=== PATIENT | female | born 1985 | race African-American/Black ===

== ENCOUNTER 2018-05-19 11:32 | Day surgery (SDC) | payer OTHER ==
[2018-05-19 13:14] VITALS: BMI 30.5
--- NOTE | 2018-05-19 13:37 | PDOC.LDHP ---
Labor and Delivery H&P HPI: Patient in Triage: Bed A Reason for eval: possible ut contractions PLEASE SEE FULL H&P in CHART In brief, patient at 27.6 weeks with no HX PTB () here for contractions/ cramps. 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 [employer] No CS HX ( x2) ROS: otherwise negative Full H&P in chart Assessment: Threatened PTL at 27 weeks 6 days...clinically comfortable and do not suspect PTL Plan: CX legth in progress FFN pending If both negatve...OK to release (no recent sex for FFN collection) If FFN positive, will check cervix digitally Grav: 5 Para: 2 OB History Details: SAB2 Abnormal US findings: No Current medications: pre- vitamins Previous surgical history: none Allergies/Adverse Reactions: Allergies Allergy/AdvReac Type Severity Reaction Status Date / Time No Known Allergies Allergy Verified 05/19/18 12:09 Social history: none - Physical Exam Vital signs reviewed and normal: yes General: NAD - Assessment Threatened PTL - Plan Plan: other (See handwritten. See FFN...and cx length results)
[2018-05-19 13:41] LABS: FFN Internal QC Analyzer PASS (PASS); FFN Internal QC Cassette PASS (PASS); Fetal Fibronectin Negative (Negative)
--- NOTE | 2018-05-19 14:09 | ULT ---
LIMITED OB ULTRASOUND FOR EVALUATION OF CERVICAL LENGTH: Date: 05-19-18 History: Positive , pre-term contractions. Evaluate cervical length. FINDINGS: There is evidence of a single intrauterine gestation in cephalic presentation. Cardiac doppler does d emonstrate heart tones with a heart rate of 135 beats/minute. There is shadowing in the region of the cervix, but the cervical length measures approximately 3 cm b ased on transabdominal imaging. No additional imaging was obtained of the fetus. IMPRESSION: 1. Single intrauterine gestation in cephalic presentation with heart tones documented. 2. Cervical length measures approximately 3 cm. POS: [facility]
--- NOTE | 2018-05-19 14:30 | PDOC.EVN ---
Event Note - Event Note Event Note: FFN negative, Off work tonight and may return to work tomorrow PM. FHTs reactive. BPs ok
--- NOTE | 2018-05-19 14:57 | PDOC.EVN ---
Event Note - Event Note Event Note: Note: FHTS have moderate variability...less than 28 weeks so technically under the EGA for "reactive" but still a reassurring pattern.
== END 2018-05-19 14:57 | disposition home or self-care (01) ==
LOC: L&D/OP 11:32
PROVIDERS: ATTEND Obstetrics & Gynecology
DX: O47.02 False labor before 37 completed weeks of gestation, second trimester (principal); Z3A.27 27 weeks gestation of pregnancy
CPT/HCPCS: 59025; 76815; 82731; 99282

== ENCOUNTER 2018-07-28 00:19 | Day surgery (SDC) | payer OTHER ==
[2018-07-28 00:52] VITALS: BMI 38.0
--- NOTE | 2018-07-28 04:10 | PRG ---
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 CHIEF COMPLAINT: Abdominal pains. HISTORY OF PRESENT ILLNESS: The patient is a 33-year-old female with an intrauterine at 37 weeks and 6 days who presents to labor and delivery from work with uterine contractions that s he feels are about every 6-8 minutes apart. She denies any leakage of fluid or vaginal bleeding. Sh e denies fever, fall, headache, chest pain, or shortness of breath. She denies nausea, vomiting. Sh e reports diarrhea. Denies constipation. Denies any new rashes, hip problems, knee problems, muscle weakness. Denies vaginal bleeding or leakage of fluid. Denies urinary urgency. Reports her contra ctions began several hours ago. PAST MEDICAL HISTORY: Negative. PAST SURGICAL HISTORY: Negative. ALLERGIES: No known drug allergies. SOCIAL HISTORY: Denies drug, alcohol, or tobacco use. The patient has had 2 term vaginal deliveries , uncomplicated. OBSTETRIC LABORATORY DATA: Blood type is O positive. Patient had a diabetic screen of 144 with a no rmal 3-hour GTT. RPR is nonreactive, blood type O positive, antibody screen is negative. Hepatitis B surface antigen nonreactive, HIV is nonreactive. She is rubella immune. GC and chlamydia are nega tive. REVIEW OF SYSTEMS: Per HPI. PHYSICAL EXAMINATION: VITAL SIGNS: Blood pressure 108/70, heart rate of 89, respiratory rate 18, satting 98% on room air, temperature 98.7. GENERAL: She appears to be in no acute distress. She is alert and oriented, cooperative and pleasan t to interact with. HEENT: Head: Normocephalic, atraumatic. LUNGS: Clear to auscultation bilaterally. HEART: Regular rate and rhythm. ABDOMEN: Soft, gravid, nontender. EXTREMITIES: Nontender, nonedematous. Her cervical exam is 4, 70, -2 station, which is consistent with her last check at the [facility] er in the day; after 2 hours, is unchanged. Her contraction pattern is about every 6-8 minutes. Fet us has NST, it was noted to have a baseline in the 140s with moderate long-term variability, positive 15 x 15 accelerations, no decelerations. ASSESSMENT AND PLAN: The patient is a 33-year-old female with an intrauterine at 37 weeks and 6 days who is having late in labor. The patient has denied any pain medication at this jam e. She is being discharged to home for rest and given term labor precautions. The patient lives her e in [facility]. Her appointment with Dr. Tran is next week. She has been encouraged to keep.
== END 2018-07-28 03:25 | disposition home health service (06) ==
LOC: L&D/OP 00:19
PROVIDERS: ATTEND Obstetrics & Gynecology
DX: O47.1 False labor at or after 37 completed weeks of gestation (principal); Z3A.37 37 weeks gestation of pregnancy
CPT/HCPCS: 99282

== ENCOUNTER 2018-08-02 12:53 | Inpatient (IN) | payer OTHER ==
[2018-08-02] MEDS ORDERED: Lidocaine 1% (PF) 30 ML VIAL SC PRN (13:05)
[2018-08-02] MEDS ORDERED: Promethazine HCl 25 MG/ML VIAL IM PRN ×2 (13:05→17:38)
[2018-08-02] MEDS ORDERED: Ibuprofen 800 MG TAB PO PRN (13:05)
[2018-08-02] MEDS ORDERED: Butorphanol Tartrate 1 MG/ML VIAL SLOW IVP PRN (13:05)
[2018-08-02] MEDS ORDERED: Docusate 100 MG CAP PO PRN (13:05)
[2018-08-02] MEDS ORDERED: Ondansetron HCl/PF 4 MG/2 ML Vial IVP PRN ×2 (13:05→17:38)
[2018-08-02] MEDS ORDERED: Meperidine HCl/PF 25 MG/ML VIAL IM/IV PRN (13:05)
[2018-08-02] MEDS ORDERED: Acetaminophen/Codeine 30-300mg Tablet PO PRN ×2 (13:05)
--- NOTE | 2018-08-02 13:14 | PDOC.LDHP ---
Labor and Delivery H&P Chief complaint: scheduled induction (for oligohydramnios) HPI: Pt is a 33yo sent from office with oligohydramnios after pt reported decreased FM over the last week. FHT WNL in office and JING 4cm. Current gestational age (weeks): 38 Due date: 08/14/18 Dating criteria: first trimester ultrasound Grav: 5 Para: 2 OB History Details: svdx2, sab x 2 Current complications: oligohydramnios Abnormal US findings: Yes (JING 4cm, vtx) Past Medical History: none Current medications: pre-millie vitamins Previous surgical history: none Allergies/Adverse Reactions: Allergies Allergy/AdvReac Type Severity Reaction Status Date / Time No Known Allergies Allergy Verified 05/19/18 12:09 Social history: none - Physical Exam Vital signs reviewed and normal: yes General: resting Heart: RRR Lungs: CTAB Abdomen: gravid Extremeties: no edema FHT: category 1 - Vaginal Exam cm dilated: 4 Effacement: 75% Station: -2 - OB Labs RH: positive Antibody Screen: negative HIV: negative RPR: negative HEPSAg: negative 1 hour GCT: positive 3 hour GTT: negative GBS: negative Urine drug screen: not done Rubella: immune - Assessment L&D Assessment: medically indicated induction - Plan Plan: admit to L&D, labor augmentation if indicated, informed consent obtained, anesthesia consult for pain management -: A/P: 33yo @ 38 weeks with oligohydramnios. Admit, AROM and pitocin for IOL planned.
[2018-08-02] MEDS ORDERED: NS w/ Oxytocin 10 units 500 ML IV SCH ×2 (13:15)
[2018-08-02 13:21] VITALS: BMI 38.7
[2018-08-02] MEDS: Lactated Ringer's 1,000 ML IV SCH ×2 (14:10→17:14)
[2018-08-02 14:44] LABS: Hemoglobin 12.1 g/dL (12.0-16.0); Mean Corpuscular HGB CONC 33.3 g/dL (32.0-36.0); Mean Platelet Volume 9.5 fL (7.4-10.4); Platelet Count 205 thou/uL (130-400); RBC Distribution Width 13.3 % (11.5-14.5); Red Blood Cell (RBC) Count 4.03 mill/uL (4.20-5.40); White Blood Cell (WBC) Count 12.3 thou/uL (4.8-10.8)
[2018-08-02] MEDS ORDERED: Bupivacaine 0.5% 20 ML, fentaNYL Citrate/PF 400 MCG in Sodium Chloride 0.9% 72 ML EPIDURAL SCH (15:00)
[2018-08-02] MEDS ORDERED: DISCONTINUE ALL PREVIOUS NARCOTICS FS SCH (15:00)
[2018-08-02 15:24] LABS: Syphilis Antibody Nonreactive (Nonreactive); Syphilis Antibody Index 0.05 S/CO (<1.00 Non-Reactive)
[2018-08-02 15:26] LABS: HBSAg Index 0.22 S/CO (0-0.99); Hep B Surf Ag Non-Reactive S/CO (NonReactive)
[2018-08-02] MEDS ORDERED: Naloxone HCl 0.4 mg/ml Vial IVP PRN ×2 (17:38)
[2018-08-02] MEDS ORDERED: diphenhydrAMINE 50 MG/ML VIAL IVP PRN (17:38)
[2018-08-02] MEDS ORDERED: Eucerin (Mineral Oil/Petrolatum,White) 30 gm Jar TOP PRN (17:38)
[2018-08-02] MEDS ORDERED: Acetaminophen 325 MG TAB PO PRN (17:38)
[2018-08-02] MEDS ORDERED: Lactated Ringer's 500 ML IV PRN (17:38)
[2018-08-02] MEDS ORDERED: ePHEDrine/0.9% NaCl/PF SYRINGE 50 mg/10 ml SLOW IVP PRN (17:38)
[2018-08-02] MEDS ORDERED: fentaNYL Citrate/PF 400 MCG, Bupivacaine 0.5% 20 ML in Sodium Chloride 0.9% 72 ML EPIDURAL SCH (17:45)
[2018-08-02] MEDS ORDERED: Communication Order-Pharmacy FS SCH (17:45)
--- NOTE | 2018-08-02 21:05 | PDOC.OPDEL ---
OB Operative/Delivery Note Delivery Dr/Surgeon: Marc Pre-Delivery Diagnosis: medically indicated induction (oligohydramnios) Procedure/Post Delivery Dx: spontaneous vaginal delivery Weeks gestation: 38 Anesthesia: epidural - Findings A Sex: female Weight: 5 lb 5 oz - 1 min: 9 - 5 min: 9 - Additional Findings/Plan Placenta delivered: spontaneous Repaired Obstetrical Laceration: none Estimated blood loss: 50ml QBL pending Post delivery plan: routine recovery
[2018-08-02] MEDS: NS / Oxytocin 40 units/1000ml 1,000 ML IV PRN ×2 (21:36→21:57)
[2018-08-03] MEDS ORDERED: Acetaminophen/Codeine 30-300mg Tablet PO PRN ×2 (01:02)
[2018-08-03] MEDS ORDERED: Ondansetron HCl/PF 4 MG/2 ML Vial IVP PRN (01:02)
[2018-08-03] MEDS ORDERED: Preparation H Ointment 28 GM TUBE PR PRN (01:02)
[2018-08-03] MEDS ORDERED: Milk Of Magnesia 30 ML UDCUP PO PRN (01:02)
[2018-08-03] MEDS ORDERED: diphenhydrAMINE 25 MG CAP PO PRN (01:02)
[2018-08-03] MEDS ORDERED: Benzocaine/Menthol 20-0.5% 60 ML CAN TOP PRN (01:02)
[2018-08-03] MEDS ORDERED: Bisacodyl 10 MG SUPP PR PRN (01:02)
[2018-08-03] MEDS ORDERED: NS / Oxytocin 40 units/1000ml 1,000 ML IV SCH (01:02)
[2018-08-03] MEDS ORDERED: Lanolin Ointment 7 GM TUBE TOP PRN (01:02)
[2018-08-03] MEDS ORDERED: Docusate Calcium (SURFAK) 240 MG CAP PO SCH (01:15)
[2018-08-03] MEDS: Ibuprofen 800 MG TAB PO SCH ×3 (01:52→22:01)
[2018-08-03] MEDS ORDERED: Bupivacaine/Epinephrine 0.25% 30 ML VIAL ONE (04:35)
[2018-08-03] MEDS ORDERED: Lidocaine 2% MPF 10 ML AMP (For Epidural Use) ONE (04:35)
[2018-08-03] MEDS ORDERED: Adacel (T-DAP) 0.5 ML VIAL IM ONE (09:00)
[2018-08-03] MEDS: Ferrous Sulfate 325 MG TAB PO SCH ×2 (09:29→18:19)
[2018-08-03] MEDS: Prenatal Vitamin 1 TAB PO SCH (09:30)
[2018-08-03] MEDS: Docusate Calcium (SURFAK) 240 MG CAP PO SCH ×2 (09:30→22:01)
--- NOTE | 2018-08-03 12:19 | PDOC.PP ---
Post Progress Note Post Day #: 1 Subjective: doing well, breast feeding, min lochia PO intake tolerated: yes Flatus: yes Ambulation: yes Vital Signs (12 hours) Temp Pulse Resp BP Pulse Ox 08/03/18 12:06 98.3 F 70 20 118/65 08/03/18 08:10 98.3 F 104 H 20 104/57 L 99 08/03/18 01:40 98.4 F 89 18 119/59 L 98 08/03/18 00:25 98.1 F 80 18 112/65 98 Weight Weight 212 lb - Physical Examination General: NAD Respiratory: non-labored breathing Abdominal: no distention Fundus firm & at: below umb Skin: no rash Neurological: no gross focal deficits Psychiatric: normal affect Result Diagrams: 08/02/18 14:11 Additional Labs: Post Labs Blood Type O POSITIVE 08/02/18 14:11 Hep Bs Antigen Non-Reactive S/CO (NonReactive) 08/02/18 14:11 (1) 38 weeks gestation of Code(s): Z3A.38 - 38 WEEKS GESTATION OF Status: Acute (2) Vaginal delivery Code(s): O80 - ENCOUNTER FOR FULL-TERM UNCOMPLICATED DELIVERY Status: Acute - Assessment/Plan A/P: PPD#1 doing well, no concerns, continue PP care.
[2018-08-04] MEDS: Ibuprofen 800 MG TAB PO SCH ×2 (05:43→14:38)
[2018-08-04 08:24] VITALS: BP 102/64; TEMP 97.8
[2018-08-04] MEDS: Docusate Calcium (SURFAK) 240 MG CAP PO SCH (09:24)
[2018-08-04] MEDS: Prenatal Vitamin 1 TAB PO SCH (09:24)
[2018-08-04] MEDS: Ferrous Sulfate 325 MG TAB PO SCH (09:24)
--- NOTE | 2018-08-04 11:58 | PDOC.PP ---
Post Progress Note Post Day #: 2 Subjective: doing well, nursing, min lochia PO intake tolerated: yes Flatus: yes Ambulation: yes Vital Signs (12 hours) Temp Pulse Resp BP Pulse Ox 08/04/18 08:23 97.8 F 55 L 20 102/64 97 Weight Weight 212 lb - Physical Examination General: NAD Respiratory: non-labored breathing Abdominal: no distention Fundus firm & at: below umb Extremities: negative homans (B) Skin: no rash Neurological: no gross focal deficits Psychiatric: A&Ox3, normal affect Result Diagrams: 08/02/18 14:11 Additional Labs: Post Labs Blood Type O POSITIVE 08/02/18 14:11 Hep Bs Antigen Non-Reactive S/CO (NonReactive) 08/02/18 14:11 (1) 38 weeks gestation of Code(s): Z3A.38 - 38 WEEKS GESTATION OF Status: Acute (2) Vaginal delivery Code(s): O80 - ENCOUNTER FOR FULL-TERM UNCOMPLICATED DELIVERY Status: Acute - Assessment/Plan PPD2, sp IOL for oligohydramnios. May visit with LC if she rounds prior to baby DC.
== END 2018-08-04 15:39 | disposition home or self-care (01) | DRG 807 ==
LOC: L&D 12:53 → 3SW 23:49
PROVIDERS: ADMIT Obstetrics & Gynecology; ATTEND Obstetrics & Gynecology
PROC: 10E0XZZ Delivery of Products of Conception, External Approach (ICD-10-PCS; principal; 2018-08-02)
PROC: 10907ZC Drainage of Amniotic Fluid, Therapeutic from Products of Conception, Via Natural or Artificial Opening (ICD-10-PCS; 2018-08-02)
PROC: 3E033VJ Introduction of Other Hormone into Peripheral Vein, Percutaneous Approach (ICD-10-PCS; 2018-08-02)
DX: O41.03X0 Oligohydramnios, third trimester, not applicable or unspecified (principal); Z37.0 Single live birth; Z3A.38 38 weeks gestation of pregnancy
CPT/HCPCS: 51702; 85027; 86780; 86850; 86900; 86901; 87340; J2001; J3010; J3490; J7050

== ENCOUNTER 2019-08-18 11:30 | Inpatient (IN) | payer OTHER ==
[2019-08-18 12:12] VITALS: BMI 39.3
[2019-08-18 12:36] LABS: Amnisure Internal Control QC ACCEPTABLE (ACCEPTABLE); Amnisure Test No Membranes Rupture (No Rupture)
[2019-08-18] MEDS ORDERED: hydrALAZINE 20 MG/ML VIAL SLOW IVP PRN ×2 (13:20→18:05)
--- NOTE | 2019-08-18 13:49 | PDOC.FPROB ---
FMR OB H&P: HPI - History of Present Illness Chief Complaint: Contractions, Leaking of fluid Indentification: at 37.4 wks History of Present Illness: 34 year old at 37.4 wks presents with contractions since 8:00 AM this morning which were approximately every 8 minutes apart. Additionally, patient endorses leaking of fluid since 6:00 AM. Patient has history of A1 GDM with FBG 70-80's and 2h PP 90-100's. Patient denies vaginal bleeding or dysuria. Endorses good movement. Patient denies significant complications during this or past pregnancies. Patient reports that she was 2 cm in clinic several days ago. She denies fever, chills, N/V/D, chest pain, shortness of breath. Primary Care Physician: Dr. 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 History: Denies history of STD's or PID - Surgical History Sx History: Denies - Social History Social History: Denies tobacco, alcohol, or drug use - Family History Family History: Denies any significant family history FMR OB H&P: Medications - Current Home Medications: Medication Instructions Recorded Confirmed Type Cholecalciferol (Vitamin D3) 2 capsule PO DAILY 05/19/18 08/18/19 History [Vitamin D] Pnv No.95/Ferrous Fum/Folic AC 1 capsule PO DAILY 05/19/18 08/18/19 History [ Tablet] Allergies/Adverse Reactions: Allergies Allergy/AdvReac Type Severity Reaction Status Date / Time No Known Allergies Allergy Verified 08/18/19 12:07 FMR OB H&P: ROS - Review of Systems General: denies: fever/chills, weight/appetite/sleep changes Eyes: denies: vision changes ENT: denies: nasal congestion, rhinorrhea, sore throat Cardiovascular: denies: chest pain, edema Respiratory: denies: cough, shortness of breath Gastrointestinal: denies: abdominal pain, cramping, vomiting, diarrhea Genitourinary (Female): reports: vaginal discharge, contractions. denies: dysuria, vaginal bleeding Musculoskeletal: denies: pain, tenderness Neurologic: denies: numbness, syncope Integumentary: denies: itching, rash, lesions Psychological: denies: depression, anxiety FMR OB H&P: Vital Signs - Maternal Vital signs: Vital Signs - First Documented Temp Pulse Resp BP 98.9 F 85 18 114/71 08/18/19 11:57 08/18/19 11:57 08/18/19 11:57 08/18/19 11:57 - Heart Tones Baseline: 130 Variability: moderate Acceleration: present Deceleration: absent Category: category 1 [place] contractions every: q8 min FMR OB H&P: Physical Exam - Physical Exam General: NAD, awake, alert and oriented HEENT: MMM, grossly normal vision, grossly normal hearing Heart: RRR, pulses present, no edema General: CTAB Abdomen: soft, gravid, non-tender Musculoskeletal: pulses present, FROM in all four extremities Neurological: no tremor, no focal deficit Skin: no rash, capillary refill <2 seconds Lymphatic: no unusual bruising or bleeding, no purpura - Pelvic Exam Vulva: normal hair distribution, no lesions Cervix: no masses, no lesions, no blood Deviation from normal: Large amount of obrien/white vaginal discharge in vagina, no obvious pooling SVE: /-2 Presentation: cephalic FMR OB H&P: Results - Labs Lab results: Laboratory Results - last 24 hr 08/18/19 12:14 Amnio Swab Test No Membranes Rupture FMR OB H&P: A/P - Problem List (1) Current Visit: Yes Status: Acute Qualifiers: Weeks of gestation: 37 weeks Qualified Code(s): Z3A.37 - 37 weeks gestation of (2) GDM, class A1 Current Visit: Yes Status: Acute Code(s): O24.410 - GESTATIONAL DIABETES MELLITUS IN , DIET CONTROLLED Disposition: 34 year old at 37.4 wks presents with contraction and leaking of fluid sIUP - O+, antibody neg - Contractions q8-10 min, no longer painful - /-2 on 2 separate exams 2h apart - Reactive strip, with intermittent decelerations noted - Given decelerations, ordered ultrasound for JING and initiated contraction stress test with pitocin - JING noted to be 1 cm; patient to be induced for oligohydramnios - Cephalic presentation - Left lateral placenta Leaking of fluid - Amnisure neg x2 - White, obrien vaginal discharge on speculum exam, no notable pooling of clear fluid. No pooling with cough. - JING only 1 cm A1GDM - Well controlled - FBG 80's-90's and 2h PP BG 90-100's per patient Marijuana use in - Positive 01/2019 - Repeat today Dispo: While amnisure was neg x2 and speculum exam not consistent with gross rupture, JING performed d/t intermittent decelerations and contraction stress test initiated. JING showed fluid of only 1 cm. Patient being admitted to L&D for oligohydramnios. Will continue with pitocin for augmentation of labor as tolerated. Discussion: Date/Time: 08/18/19 1898 This H&P was discussed with Dr. Burden who agrees with the above documentation and plan. Signature: Kenia Duran, PGY-3 Addendum - Attending - Attending Attestation Date/Time: 08/18/19 2799 I personally evaluated the patient and discussed the management with Dr. Duran I agree with the History, Examination, Assessment and Plan documented above with any addition or exceptions noted below.
[2019-08-18 14:47] LABS: Amnisure Test No Membranes Rupture (No Rupture)
[2019-08-18 14:49] LABS: Amnisure Internal Control QC ACCEPTABLE (ACCEPTABLE)
[2019-08-18] MEDS ORDERED: NS w/ Oxytocin 10 units 500 ML IV SCH (16:45)
[2019-08-18] MEDS ORDERED: Ibuprofen 800 MG TAB PO PRN (18:05)
[2019-08-18] MEDS ORDERED: Ondansetron PF 4 MG/2 ML Vial IVP PRN ×2 (18:05→20:16)
[2019-08-18] MEDS ORDERED: NS / Oxytocin 40 units/1000ml 1,000 ML IV PRN (18:05)
[2019-08-18] MEDS ORDERED: Butorphanol Tartrate 1 MG/ML VIAL SLOW IVP PRN (18:05)
[2019-08-18] MEDS ORDERED: Acetaminophen 500 MG TAB PO PRN (18:05)
[2019-08-18] MEDS ORDERED: Lidocaine 1% (PF) 30 ML VIAL SC PRN (18:05)
[2019-08-18] MEDS ORDERED: Promethazine HCl 25 MG/ML VIAL IM PRN ×2 (18:05→20:16)
--- NOTE | 2019-08-18 18:10 | ULT ---
EXAM: OB ultrasound COMPARISON: None HISTORY: female. Evaluate position, JING and placental location.. TECHNIQUE: Multiplanar grayscale and color Doppler images were obtained in a transabdominal ult rasound. FINDINGS: There is a single live intrauterine with heart rate of 120 bpm. Estimated weight is 3010 g. Average age of the fetus based off today's examination is 36 weeks 3 days. BPD 8.77 cm -- 35 weeks 3 days HC 32.58 cm -- 36 weeks 6 days AC 33.02 cm -- 37 weeks 0 days FL 7.17 cm -- 36 weeks 5 days The placenta is fundal in location without focal abnormality. JING is 1.0 cm which is low. The cervix is shortened in length measuring 1.5 cm.. There is no evidence of placenta previa. IMPRESSION: 1. Single live intrauterine with estimated age of 36 weeks 3 days. 2. Oligohydramnios
[2019-08-18 18:36] LABS: Hemoglobin 12.7 g/dL (12.0-16.0); Mean Corpuscular HGB CONC 33.6 g/dL (32.0-36.0); Mean Corpuscular Volume 86.5 fL (78.0-98.0); Mean Platelet Volume 9.8 fL (7.4-10.4); Platelet Count 202 thou/uL (130-400); RBC Distribution Width 13.1 % (11.5-14.5); Red Blood Cell (RBC) Count 4.38 mill/uL (4.20-5.40); White Blood Cell (WBC) Count 8.8 thou/uL (4.8-10.8)
[2019-08-18] MEDS: Lactated Ringer's 1,000 ML IV SCH ×2 (19:07→20:13)
[2019-08-18 19:14] LABS: HBSAg Index 0.14 S/CO (0-0.99); Hep B Surf Ag Non-Reactive S/CO (NonReactive); Syphilis Antibody Nonreactive (Nonreactive); Syphilis Antibody Index 0.07 S/CO (<1.00 Non-Reactive)
[2019-08-18] MEDS ORDERED: Fentanyl 4 mcg/Bup 0.1% Cadd 100 ML ONE (19:15)
[2019-08-18] MEDS ORDERED: ePHEDrine/0.9% NaCl/PF SYRINGE 50 mg/10 ml SLOW IVP PRN (20:16)
[2019-08-18] MEDS ORDERED: Acetaminophen 325 MG TAB PO PRN (20:16)
[2019-08-18] MEDS ORDERED: Naloxone HCl 0.4 mg/ml Vial IVP PRN ×2 (20:16)
[2019-08-18] MEDS ORDERED: diphenhydrAMINE 50 MG/ML VIAL IVP PRN (20:16)
[2019-08-18] MEDS ORDERED: Lactated Ringer's 500 ML IV PRN (20:16)
[2019-08-18] MEDS ORDERED: Communication Order-Pharmacy FS SCH (20:30)
[2019-08-18] MEDS ORDERED: Fentanyl 4 mcg/Bupivacaine 0.1% Cassette 100 ML EPIDURAL SCH (20:30)
[2019-08-18 21:07] LABS: Amphetamine Not Detected (NotDetected); Barbiturates Screen Not Detected (NotDetected); Benzodiazepine Screen Not Detected (NotDetected); Cocaine Metabolite Screen Not Detected (NotDetected); Medtox Control Line Valid? VALID (VALID); Medtox Reader # READER 1; Methadone Not Detected (NotDetected); Methamphetamine Not Detected (NotDetected); Opiate Screen Not Detected (NotDetected); Oxycodone Screen Not Detected (NotDetected); Phencyclidine (PCP) Not Detected (NotDetected); THC/Cannabinoid Screen Not Detected (NotDetected); Tricyclic Screen Not Detected (NotDetected)
[2019-08-19] MEDS ORDERED: Milk Of Magnesia 30 ML UDCUP PO PRN (07:12)
[2019-08-19] MEDS ORDERED: Bisacodyl 10 MG SUPP PR PRN (07:12)
[2019-08-19] MEDS ORDERED: diphenhydrAMINE 25 MG CAP PO PRN (07:12)
[2019-08-19] MEDS ORDERED: hydrALAZINE 20 MG/ML VIAL SLOW IVP PRN (07:12)
[2019-08-19] MEDS ORDERED: Adacel (T-DAP) 0.5 ML SYRINGE IM ONE (07:12)
[2019-08-19] MEDS ORDERED: NS / Oxytocin 40 units/1000ml 1,000 ML IV SCH (07:12)
[2019-08-19] MEDS ORDERED: Lanolin Ointment 7 GM TUBE TOP PRN (07:12)
[2019-08-19] MEDS ORDERED: Preparation H Ointment 28 GM TUBE PR PRN (07:12)
[2019-08-19] MEDS: Ibuprofen 800 MG TAB PO SCH ×3 (07:28→21:28)
[2019-08-19] MEDS: Ferrous Sulfate 325 MG TAB PO SCH ×2 (10:52→15:49)
[2019-08-19] MEDS: Docusate Calcium (SURFAK) 240 MG CAP PO SCH ×2 (10:53→21:28)
[2019-08-19] MEDS: Prenatal Vitamin 1 TAB PO SCH (10:53)
[2019-08-20] MEDS: Ibuprofen 800 MG TAB PO SCH ×3 (05:48→22:23)
[2019-08-20] MEDS: Ferrous Sulfate 325 MG TAB PO SCH ×2 (07:29→17:24)
[2019-08-20] MEDS: Prenatal Vitamin 1 TAB PO SCH (08:23)
[2019-08-20] MEDS: Docusate Calcium (SURFAK) 240 MG CAP PO SCH ×2 (08:24→22:23)
--- NOTE | 2019-08-20 10:33 | PDOC.PP ---
Post Progress Note Post Day #: 1 Subjective: Doing well, will likely want to stay overnight for help with breast feeding and nursery. Minimal lochia. PO intake tolerated: yes Flatus: yes Ambulation: yes Vital Signs (12 hours) Temp Pulse Resp BP Pulse Ox 08/20/19 08:00 98.4 F 67 16 116/56 L 98 08/20/19 05:00 98.2 F 79 18 116/69 08/19/19 23:54 98.2 F 74 18 106/61 97 Weight Weight 215 lb - Physical Examination General: NAD Respiratory: non-labored breathing Abdominal: no distention Fundus firm & at: below umb Skin: no rash Neurological: no gross focal deficits Psychiatric: A&Ox3, normal affect Result Diagrams: 08/18/19 18:22 Additional Labs: Post Labs Blood Type O POSITIVE 08/18/19 18:22 Hep Bs Antigen Non-Reactive S/CO (NonReactive) 08/18/19 18:22 (1) 37 weeks gestation of Code(s): Z3A.37 - 37 WEEKS GESTATION OF Status: Acute (2) GDM, class A1 Code(s): O24.410 - GESTATIONAL DIABETES MELLITUS IN , DIET CONTROLLED Status: Acute (3) Oligohydramnios Code(s): O41.00X0 - OLIGOHYDRAMNIOS, UNSP TRIMESTER, NOT APPLICABLE OR UNSP Status: Acute Qualifiers: Fetus number: single or unspecified fetus (4) Vaginal delivery Code(s): O80 - ENCOUNTER FOR FULL-TERM UNCOMPLICATED DELIVERY Status: Acute - Assessment/Plan PPD1 doing well, will consider DC today but will likely stay until tomorrow. UDS negative on admission (THC pos early ).
--- NOTE | 2019-08-20 14:41 | DN ---
DATE OF PROCEDURE: 08/19/2019 DATE OF DELIVERY: 08/19/2019. RESIDENT: Kenia Duran DO Attending Physician : Dr René Burden PROCEDURE: Vaginal delivery. PREOPERATIVE DIAGNOSES: 1. Term intrauterine . 2. Oligohydramnios. 3. A1 gestational diabetes mellitus. 4. Marijuana use in . POSTOPERATIVE DIAGNOSES: 1. Term intrauterine , delivered. 2. Oligohydramnios. 3. A1 gestational diabetes mellitus. 4. Marijuana use in . INDICATIONS: This is a 34-year-old, G6, P3-0-2-3, at 37 and 4 weeks, who presented with contractions and possible leaking of fluid. She had AmniSure negative x2 as well as no pulling on speculum exam. However, during her observation period, the patient was noted to have sporadic questionable decelerations. An JING was performed along with contraction stress test in an effort to determine possible reason for decelerations and to ensure that infant tolerated contractions, should she be discharged home. In the evaluation, JING was noted to be 1 cm. Due to this finding, the patient was admitted for induction for oligohydramnios. PROCEDURE IN DETAIL: After risks, benefits, and alternatives were discussed, decision was made to induce the patient for oligohydramnios with 1 cm noted of JING on ultrasound. Intrapartum course was uneventful. At 4:36 a.m. on 08/19/2019, a viable female was delivered over an intact perineum in the occipitoanterior position. Anterior shoulders and remainder of the body was delivered. No nuchal cord noted. Apgars were 8 and 9 at one and five minutes respectively. No lacerations noted and no vaginal bleeding noted. Fundus was massaged and noted to be firm. The placenta was delivered spontaneously intact with three-vessel cords noted and sent for pathology, given oligohydramnios. No maternal or complications. Infant went to Nursery for routine care. Mother went to for routine recovery/care. Addendum I was present and supervising for the entire 2nd and 3rd stages of labor. I agree with the above documentation, Job ID: [id number] MTDD
[2019-08-21] MEDS: Ibuprofen 800 MG TAB PO SCH (05:48)
[2019-08-21 07:58] VITALS: BP 118/68; TEMP 98.7
--- NOTE | 2019-08-21 08:14 | PDOC.PP ---
Post Progress Note Post Day #: 2 Subjective: doing well, no concerns, minimal lochia Vital Signs (12 hours) Temp Pulse Resp BP Pulse Ox 08/21/19 07:57 98.7 F 71 20 118/68 97 08/21/19 05:50 98.4 F 70 115/63 08/20/19 21:10 98.3 F 81 111/57 L Weight Weight 215 lb - Physical Examination General: NAD Respiratory: non-labored breathing Abdominal: no distention Neurological: no gross focal deficits Psychiatric: A&Ox3, normal affect Result Diagrams: 08/18/19 18:22 Additional Labs: Post Labs Blood Type O POSITIVE 08/18/19 18:22 Hep Bs Antigen Non-Reactive S/CO (NonReactive) 08/18/19 18:22 (1) 37 weeks gestation of Code(s): Z3A.37 - 37 WEEKS GESTATION OF Status: Acute (2) GDM, class A1 Code(s): O24.410 - GESTATIONAL DIABETES MELLITUS IN , DIET CONTROLLED Status: Acute (3) Oligohydramnios Code(s): O41.00X0 - OLIGOHYDRAMNIOS, UNSP TRIMESTER, NOT APPLICABLE OR UNSP Status: Acute Qualifiers: Fetus number: single or unspecified fetus (4) Vaginal delivery Code(s): O80 - ENCOUNTER FOR FULL-TERM UNCOMPLICATED DELIVERY Status: Acute - Assessment/Plan PPD2 doing well. No concerns, plans for DC today.
[2019-08-21] MEDS: Docusate Calcium (SURFAK) 240 MG CAP PO SCH (08:18)
[2019-08-21] MEDS: Prenatal Vitamin 1 TAB PO SCH (08:18)
[2019-08-21] MEDS: Ferrous Sulfate 325 MG TAB PO SCH (08:19)
== END 2019-08-21 11:50 | disposition home or self-care (01) | DRG 806 ==
LOC: L&D/OP 11:30 → L&D 19:17 → 3SW 08-19 14:25
PROVIDERS: ADMIT Obstetrics & Gynecology; ATTEND Obstetrics & Gynecology
PROC: 10E0XZZ Delivery of Products of Conception, External Approach (ICD-10-PCS; principal; 2019-08-19)
DX: O24.420 Gestational diabetes mellitus in childbirth, diet controlled (principal); O99.324 Drug use complicating childbirth; Z37.0 Single live birth; O41.03X0 Oligohydramnios, third trimester, not applicable or unspecified; Z3A.37 37 weeks gestation of pregnancy; F12.90 Cannabis use, unspecified, uncomplicated; O76 Abnormality in fetal heart rate and rhythm complicating labor and delivery
CPT/HCPCS: 36415; 51702; 76815; 80306; 84112; 85027; 86780; 86850; 86900; 86901; 87340; 88307; 99285; J2590